=== PATIENT | female | born 1945 | race Caucasian/White ===

== ENCOUNTER → 2017-09-04 15:04 | Outpatient (CLI) | payer MEDICARE, SELFPAY ==
--- NOTE | 2017-09-04 15:08 | MM_ITS ---
MM Dig screening mamm BI w/CAD CAD Screening COMPARISON: Digital mammograms 09/27/2013 and 11/08/2011 INDICATION: There is no personal or family history of breast cancer TECHNIQUE: Standard CC and MLO images were obtained. R2 CAD reviewed. FINDINGS: Moderate fiber glandular densities are seen in the central portions of both breasts. Again noted is asymmetric density approximately 8:00 position mid right breast. This was noted to be a benign-appearing cyst on ultrasound examinations in September 2013 and November 2011 and appears to have increased slightly in size from the most recent exam. I believe the patient should return for ultrasound right breast to confirm expected benign-appearing cyst since there has been a 4 year interval since the previous exam. There are few benign-appearing calcifications left breast. IMPRESSION: Fibrofatty parenchyma with asymmetric density right breast likely a cyst which has been noted previously but recommend patient return for follow-up ultrasound examination BI-RADS Category: 0 Need Additional Imaging Follow-up immediate RECOMMENDED letter has been sent to the patient regarding results of the study.)
== END ==
PROVIDERS: Family Provider Pediatrics; PCP Pediatrics; Visit Provider Pediatrics
DX: Z12.31 Encounter for screening mammogram for malignant neoplasm of breast (principal)
CPT/HCPCS: 77067

== ENCOUNTER → 2017-09-19 12:10 | Outpatient (CLI) | payer MEDICARE, SELFPAY ==
--- NOTE | 2017-09-19 12:13 | US_ITS ---
US breast RT complete COMPARISON: Mammogram of 09/04/2017 INDICATION: Follow-up abnormal mammogram, breast nodule ORDERING PHYSICIAN: Greg Fitzpatrick PATIENT AGE: 72 years TECHNIQUE: Right breast ultrasound with axilla FINDINGS: There is a macrolobulated 15 mm lesion in the 9:00 area of the right breast corresponding to the mammographic abnormality. This appears cystic but has some irregular projections. There is some through transmission of sound. There is some irregularity of the wall as well. IMPRESSION: Complex cystic lesion 9:00 right breast corresponding to the mammographic abnormality. BI-RADS Category: 4 Suspicious Abnormality-Biopsy Considered RECOMMENDED FOLLOW-UP: IMM - IMMEDIATE FOLLOW-UP RECOMMENDED Recommend ultrasound-guided cyst aspiration for this complex cystic lesion (A letter has been sent to the patient regarding results of the study.)
== END ==
PROVIDERS: Family Provider Pediatrics; PCP Pediatrics; Visit Provider Pediatrics
DX: R92.8 Other abnormal and inconclusive findings on diagnostic imaging of breast (principal)
CPT/HCPCS: 76641

== ENCOUNTER 2022-12-12 09:26 | Emergency (ER) | payer MEDICARE, SELFPAY ==
[2022-12-12 09:40] VITALS: BP 131/73; PULSE 101; RESP 18; TEMP 36.6; O2SAT 98; BMI 28.5
--- NOTE | 2022-12-12 10:11 | EXP.UTC ---
Discharge Plan Disposition Patient Disposition: Home, Self-Care Condition: Good Prescriptions Prescriptions: No Action pravastatin 40 mg tablet 40 mg PO QHS losartan-hydrochlorothiazide 50-12.5 mg tablet 1 tab PO ONCE aspirin 81 mg tablet,delayed release (DR/EC) 81 mg PO ONCE cholecalciferol (vitamin D3) 2,000 unit capsule 2,000 unit PO ONCE tobramycin 3.5 GM ointment 3.5 gm OP QID Qty: 1 0RF Referrals Follow up/Referrals: Greg Fitzpatrick [Primary Care Provider] - See instructions Activity Restrictions/Add. Instructions Additional Instructions/Restrictions: Go to [facility] and be there by 11am for further exam Return if needed Go straight to ER for worse headache of your life Clinical Impressions Clinical Impression: Eye problem Instructions Patient Instructions: DI for Subconjunctival Hemorrhage Discharge ED Provider: Winsome Clement [facility] General Stated complaint: Eye redness w/drainage Mode of Arrival: Ambulatory Source of Information: Patient Limitations: No Limitations Time Seen by Provider: 12/12/22 10:12 Description of Symptoms (Recalled from Triage Doc. by RN): PATIENT C/O REDNESS/BLOOD IN RIGHT EYE AND HEADACHE THAT STARTED THIS MORNING HEENT Symptoms (Recalled from RN notes): Yes Resp Symptoms (Recalled from RN notes): No Skin Symptoms (Recalled from RN notes): No MS Symptoms (Recalled from RN notes): No Functional Status (Recalled from RN notes): WNL History of Present Illness Provider Complaint: Patient states that she has really bad allergies States that she has been having nasal drainage, cough and sneezing with a little sinus headache like she always has but she has been having these symptoms for years especially if it is raining States that she has been coughing hard and noticed this morning that the white of her right eye looked like it was filled with blood and it got her worried so she came in here wanting to see an eye doctor Denies blurry vision denies loss of vision and denies worse headache of life States that she always has headaches when her allergy flares up Related Data Home Medications Medication Instructions Recorded Confirmed aspirin 81 mg tablet,delayed 81 mg PO ONCE Heart disease 10/04/17 03/11/18 release cholecalciferol (vitamin D3) 50 2,000 unit PO ONCE Supplement 10/04/17 03/11/18 mcg (2,000 unit) capsule losartan 50 mg-hydrochlorothiazide 1 tab PO ONCE High blood pressure 10/04/17 03/11/18 12.5 mg tablet pravastatin 40 mg tablet 40 mg PO QHS Cholesterol 10/04/17 03/11/18 Previous Rx's Medication Instructions Recorded tobramycin 0.3 % eye ointment 3.5 gm OP QID #1 tube 03/11/18 Allergies Allergy/AdvReac Type Severity Reaction Status Date / Time azithromycin [AZITHROMYCIN] Allergy Mild Verified 10/04/17 13:26 Sulfa (Sulfonamide Allergy Mild Verified 10/04/17 13:26 Antibiotics) [SULFA (SULFONAMIDE ANTIBIOTICS)] Worker's Comp Is this a Worker's Comp case?: No [facility] Disclaimer: The information contained in this section may have been updated after the patient was seen, as this information can be updated by other users. Medical History (Updated 12/12/22 @ 10:30 by Winsome Clement APRN) Hyperlipidemia Hypertension Surgical History (Updated 12/12/22 @ 09:59 by Rima Arreguin RN) History of appendectomy History of tonsillectomy History of tubal ligation Social History Smoking Status: Current every day smoker tobacco type: cigarettes second hand exposure: Yes alcohol intake: never substance use type: denies use current occupational status: retired Travel in the last 8 weeks: None ROS Obtained: Yes All systems reviewed & no additional complaints except as documented and Yes Systems reviewed as appropriate & no additional complaints except as documented Constitutional Constitutional: Reports system reviewed and no additional complaints, except as documented and R
[2022-12-12 10:26] VITALS: BP 131/73; PULSE 101; RESP 18; TEMP 36.6; O2SAT 98
== END 2022-12-12 10:39 | disposition home or self-care (01) ==
PROVIDERS: Emergency Provider Nurse Practitioner; PCP Pediatrics
DX: H11.31 Conjunctival hemorrhage, right eye (principal); R51.9 Headache, unspecified; F17.210 Nicotine dependence, cigarettes, uncomplicated; I10 Essential (primary) hypertension; E78.5 Hyperlipidemia, unspecified
CPT/HCPCS: 99212; 99214; G0463

== ENCOUNTER 2023-02-16 08:13 | Emergency (ER) | payer MEDICARE, SELFPAY ==
[2023-02-16 09:15] VITALS: BP 141/94; PULSE 84; RESP 20; TEMP 37; O2SAT 98; BMI 27.4
--- NOTE | 2023-02-16 09:41 | EXP.UTC ---
Discharge Plan Disposition Patient Disposition: Home, Self-Care Condition: Good Prescriptions Prescriptions: New methylprednisolone [Medrol (Chad)] 4 mg tablets,dose pack See Rx Instructions .Route .COMPLEX 6 Days Qty: 21 0RF Rx Instructions: taper pack; No Action pravastatin 40 mg tablet 40 mg PO QHS losartan-hydrochlorothiazide 50-12.5 mg tablet 1 tab PO ONCE aspirin 81 mg tablet,delayed release (DR/EC) 81 mg PO ONCE cholecalciferol (vitamin D3) 2,000 unit capsule 2,000 unit PO ONCE tobramycin 3.5 GM ointment 3.5 gm OP QID Qty: 1 0RF Referrals Follow up/Referrals: Greg Fitzpatrick [Primary Care Provider] - See instructions Activity Restrictions/Add. Instructions Additional Instructions/Restrictions: Start oral steriods tomorrow Over the counter calamine lotion may help with itching and rash Follow up with your Family Doctor if no improvement or any worsening of symptoms Return if needed Straight Clinical Impressions Clinical Impression: Rash and nonspecific skin eruption Instructions Patient Instructions: DI for Rash, Methylprednisolone Discharge ED Provider: Winsome Clement [facility] General Stated complaint: possible poison lynn Mode of Arrival: Ambulatory Source of Information: Patient Limitations: No Limitations Time Seen by Provider: 02/16/23 09:41 Description of Symptoms (Recalled from Triage Doc. by RN): PATIENT C/O POSSIBLE POISON LYNN RASH HEENT Symptoms (Recalled from RN notes): No Resp Symptoms (Recalled from RN notes): No Skin Symptoms (Recalled from RN notes): Yes MS Symptoms (Recalled from RN notes): No Functional Status (Recalled from RN notes): WNL History of Present Illness Provider Complaint: Patient states that she has been weed eating and not sure if she got into poison lynn or something that she is allergic too States that she has a fluid filled rash on her hands and wrist and has red rash on her face not sure if she may be having a reaction to something or poison lynn Related Data Home Medications Medication Instructions Recorded Confirmed aspirin 81 mg tablet,delayed 81 mg PO ONCE Heart disease 10/04/17 03/11/18 release cholecalciferol (vitamin D3) 50 2,000 unit PO ONCE Supplement 10/04/17 03/11/18 mcg (2,000 unit) capsule losartan 50 mg-hydrochlorothiazide 1 tab PO ONCE High blood pressure 10/04/17 03/11/18 12.5 mg tablet pravastatin 40 mg tablet 40 mg PO QHS Cholesterol 10/04/17 03/11/18 Previous Rx's Medication Instructions Recorded tobramycin 0.3 % eye ointment 3.5 gm OP QID #1 tube 03/11/18 methylprednisolone 4 mg tablets in See Rx Instructions .Route 02/16/23 a dose pack (Medrol (Chad)) .COMPLEX 6 days #21 tabs Allergies Allergy/AdvReac Type Severity Reaction Status Date / Time azithromycin [AZITHROMYCIN] Allergy Mild Verified 10/04/17 13:26 Sulfa (Sulfonamide Allergy Mild Verified 10/04/17 13:26 Antibiotics) [SULFA (SULFONAMIDE ANTIBIOTICS)] Worker's Comp Is this a Worker's Comp case?: No [facility] Disclaimer: The information contained in this section may have been updated after the patient was seen, as this information can be updated by other users. Medical History (Updated 02/16/23 @ 09:52 by Winsome Clement APRN) Hyperlipidemia Hypertension Surgical History (Updated 12/12/22 @ 09:59 by Rima Arreguin RN) History of appendectomy History of tonsillectomy History of tubal ligation Social History (Updated 12/12/22 @ 18:03 by iWnsome Clement APRN) Smoking Status: Current every day smoker tobacco type: cigarettes second hand exposure: Yes alcohol intake: never substance use type: denies use current occupational status: retired Travel in the last 8 weeks: None ROS Obtained: Yes All systems reviewed & no additional complaints except as documented and Yes Systems reviewed as appropriate & no additional complaints except as documented ENT Ears, Nose, Mouth,
[2023-02-16 10:12] VITALS: BP 141/94; PULSE 84; RESP 20; TEMP 37; O2SAT 98
== END 2023-02-16 10:15 | disposition home or self-care (01) ==
PROVIDERS: Emergency Provider Nurse Practitioner; PCP Pediatrics
DX: R21 Rash and other nonspecific skin eruption (principal); F17.210 Nicotine dependence, cigarettes, uncomplicated; I10 Essential (primary) hypertension; E78.5 Hyperlipidemia, unspecified
CPT/HCPCS: 96372; 99212; 99214; G0463